=== PATIENT | female | born 1960 | race Caucasian/White ===

== ENCOUNTER 2022-04-25 06:39 | Day surgery (SDC) | payer OTHER ==
[2022-04-20 08:15] VITALS: BMI 40.2
[2022-04-25 08:23] VITALS: BP 135/81; TEMP 97.9
[2022-04-25] MEDS ORDERED: Iopamidol-M 200 41% 20 ML VIAL ONE (14:18)
== END 2022-04-25 09:40 | disposition home or self-care (01) ==
LOC: RAD 06:39
PROVIDERS: ATTEND Neurological Surgery
PROC: B01B1ZZ Fluoroscopy of Spinal Cord using Low Osmolar Contrast (ICD-10-PCS; principal; 2022-04-25)
DX: M51.16 Intervertebral disc disorders with radiculopathy, lumbar region (principal); M47.26 Other spondylosis with radiculopathy, lumbar region; M48.062 Spinal stenosis, lumbar region with neurogenic claudication; M47.817 Spondylosis without myelopathy or radiculopathy, lumbosacral region; M48.07 Spinal stenosis, lumbosacral region; I70.0 Atherosclerosis of aorta; I10 Essential (primary) hypertension; E78.5 Hyperlipidemia, unspecified; K21.9 Gastro-esophageal reflux disease without esophagitis; G89.29 Other chronic pain; M54.9 Dorsalgia, unspecified; G47.30 Sleep apnea, unspecified; Z86.711 Personal history of pulmonary embolism; Z79.01 Long term (current) use of anticoagulants; Z79.899 Other long term (current) drug therapy; Z95.0 Presence of cardiac pacemaker; Z98.1 Arthrodesis status
CPT/HCPCS: 62304; 72132; Q9966

== ENCOUNTER 2022-06-06 11:17 | Outpatient (CLI) | payer OTHER ==
[2022-06-06 12:44] LABS: Hemoglobin 12.7 g/dL (12.0-15.5); Mean Corpuscular HGB CONC 32.7 g/dL (32.0-36.0); Mean Corpuscular Hemoglobin 31.8 pg (27.0-33.0); Platelet Count 206 10x3/uL (150-450); RBC Distribution Width 15.3 % (11.5-14.5); White Blood Cell (WBC) Count 5.6 10x3/uL (3.5-10.5)
[2022-06-06 13:20] LABS: Anion Gap 14 mmol/L (10-20); BUN (Urea Nitrogen) 6 mg/dL (9.8-20.1); Calc. Creatinine Clearance 0 mL/min (70-130); Calcium 8.8 mg/dL (7.8-10.44); Carbon Dioxide 24 mmol/L (23-31); Chloride 106 mmol/L (98-107); Estimated GFR 86; Glucose 72 mg/dL (80-115); Potassium 3.5 mmol/L (3.5-5.1); Sodium 140 mmol/L (136-145)
== END 2022-06-06 11:18 | disposition home or self-care (01) ==
LOC: LABBT 11:17
PROVIDERS: ATTEND Neurological Surgery
DX: Z01.818 Encounter for other preprocedural examination (principal); M43.16 Spondylolisthesis, lumbar region
CPT/HCPCS: 80048; 85027

== ENCOUNTER 2022-06-06 12:15 | Inpatient (IN) | payer OTHER ==
[2022-06-15 13:41] VITALS: BMI 38.7
[2022-06-18] MEDS ORDERED: Scopolamine 1.5 mg/72 hour Patch ONE (09:22)
[2022-06-18 10:05] LABS: SARS-CoV-2 NAA Rapid Test Not Detected (NotDetected)
[2022-06-18] MEDS ORDERED: fentaNYL PF 100 MCG/2 ML SYRINGE ONE (12:13)
[2022-06-18] MEDS ORDERED: Midazolam HCl 2 mg/2 ml Vial ONE (12:13)
[2022-06-18] MEDS ORDERED: Ketamine 50 MG/ML (10ML VIAL) ONE (12:13)
[2022-06-18] MEDS ORDERED: Sodium Chloride 0.9% 100 ML ONE (12:27)
[2022-06-18] MEDS ORDERED: CEFAZOLIN 2 GM VIAL ONE (12:27)
[2022-06-18] MEDS ORDERED: Dexamethasone 20 MG/5 ML VIAL ONE (12:36)
[2022-06-18] MEDS ORDERED: PHENYLEPHRINE-NS 100 MCG/ML 10 ML SYRINGE ONE (12:36)
[2022-06-18] MEDS ORDERED: PROPOFOL 200 MG/20 ML VIAL ONE (12:36)
[2022-06-18] MEDS ORDERED: Rocuronium Bromide 10 MG/ML (10ML VIAL) ONE (12:36)
[2022-06-18] MEDS ORDERED: Ondansetron PF 4 MG/2 ML Vial ONE (12:36)
[2022-06-18] MEDS ORDERED: ePHEDrine 50 MG/ML VIAL ONE (12:36)
[2022-06-18] MEDS ORDERED: Metoclopramide HCl 10 MG/2 ML VIAL ONE (12:36)
[2022-06-18] MEDS ORDERED: diphenhydrAMINE 50 MG/ML VIAL ONE (12:36)
[2022-06-18] MEDS ORDERED: Meperidine HCl/PF 25 MG/ML VIAL SLOW IVP PRN (13:57)
[2022-06-18] MEDS ORDERED: HYDROmorphone 2 MG/ML VIAL SLOW IVP PRN (13:57)
[2022-06-18] MEDS ORDERED: Promethazine HCl 25 MG/ML VIAL IM PRN (13:57)
[2022-06-18] MEDS ORDERED: Promethazine HCl 25 MG/ML VIAL IVPB PRN (13:57)
[2022-06-18] MEDS ORDERED: Ondansetron HCl/PF 4 MG/2 ML Vial IVP PRN (13:57)
[2022-06-18] MEDS ORDERED: Milk Of Magnesia 30 ML UDCUP PO PRN (14:15)
[2022-06-18] MEDS ORDERED: traMADol HCl 50 MG TAB PO PRN (14:15)
[2022-06-18] MEDS ORDERED: Promethazine 25 MG TAB PO PRN (14:15)
[2022-06-18] MEDS ORDERED: Ondansetron PF 4 MG/2 ML Vial IVP PRN (14:15)
[2022-06-18] MEDS ORDERED: HYDROcodone/Acetaminophen 10/325 mg Tablet PO PRN (14:15)
[2022-06-18] MEDS ORDERED: Cyclobenzaprine 10 MG TAB PO PRN (14:15)
[2022-06-18] MEDS ORDERED: Mag-Al 1200 mg/1200 mg/30 ML UDCUP PO PRN (14:15)
[2022-06-18] MEDS ORDERED: Morphine 2 MG/ML VIAL SLOW IVP PRN (14:15)
[2022-06-18] MEDS ORDERED: diphenhydrAMINE 25 MG CAP PO PRN (14:15)
[2022-06-18] MEDS ORDERED: FENTANYL 50 MCG/ML 1 ML VIAL ONE ×2 (14:35→15:19)
[2022-06-18] MEDS: Sodium Chloride 0.9% 1,000 ML IV SCH (16:41)
[2022-06-18] MEDS: Pregabalin 50 MG CAP PO SCH ×2 (16:41→21:37)
[2022-06-18] MEDS: HYDROcodone/Acetaminophen 10/325 mg Tablet PO PRN ×2 (17:29→21:43)
[2022-06-18] MEDS: CEFAZOLIN 2 GM in Sodium Chloride 0.9% 100 ML IVPB SCH (21:36)
[2022-06-19] MEDS: Sodium Chloride 0.9% 1,000 ML IV SCH ×2 (04:36→16:32)
[2022-06-19] MEDS: CEFAZOLIN 2 GM in Sodium Chloride 0.9% 100 ML IVPB SCH (04:37)
[2022-06-19] MEDS: HYDROcodone/Acetaminophen 10/325 mg Tablet PO PRN ×4 (05:26→22:50)
[2022-06-19] MEDS: Lisinopril 20 MG TAB PO SCH (08:08)
[2022-06-19] MEDS: Pregabalin 50 MG CAP PO SCH ×3 (08:09→20:23)
[2022-06-19] MEDS ORDERED: FLU VACC QS2022-23(6MOS UP)/PF 60 MCG/0.5 ML SYRINGE IM ONE (09:00)
[2022-06-20] MEDS: Sodium Chloride 0.9% 1,000 ML IV SCH ×2 (06:07→20:40)
[2022-06-20] MEDS: HYDROcodone/Acetaminophen 10/325 mg Tablet PO PRN ×3 (07:51→22:46)
[2022-06-20] MEDS: Pregabalin 50 MG CAP PO SCH ×3 (08:53→20:41)
[2022-06-20] MEDS: Lisinopril 20 MG TAB PO SCH (08:54)
[2022-06-20] MEDS: CEFAZOLIN 2 GM in Sodium Chloride 0.9% 100 ML IVPB SCH ×2 (15:18→22:47)
[2022-06-21] MEDS: CEFAZOLIN 2 GM in Sodium Chloride 0.9% 100 ML IVPB SCH (05:28)
[2022-06-21] MEDS: HYDROcodone/Acetaminophen 10/325 mg Tablet PO PRN ×2 (06:55→11:35)
[2022-06-21 08:35] VITALS: TEMP 98.2
[2022-06-21] MEDS: Sodium Chloride 0.9% 1,000 ML IV SCH (09:38)
[2022-06-21] MEDS: Lisinopril 20 MG TAB PO SCH (09:41)
[2022-06-21] MEDS: Pregabalin 50 MG CAP PO SCH (09:41)
[2022-06-21 11:39] VITALS: BP 113/62
== END 2022-06-21 14:00 | disposition home or self-care (01) | DRG 460 ==
LOC: SURG A 06-18 07:05 → SURG B 06-18 15:48
PROVIDERS: ADMIT Neurological Surgery; ATTEND Neurological Surgery
PROC: 0SG1071 Fusion of 2 or more Lumbar Vertebral Joints with Autologous Tissue Substitute, Posterior Approach, Posterior Column, Open Approach (ICD-10-PCS; principal; 2022-06-18)
PROC: 01NB0ZZ Release Lumbar Nerve, Open Approach (ICD-10-PCS; 2022-06-18)
PROC: 0SP004Z Removal of Internal Fixation Device from Lumbar Vertebral Joint, Open Approach (ICD-10-PCS; 2022-06-18)
DX: M48.062 Spinal stenosis, lumbar region with neurogenic claudication (principal); M43.16 Spondylolisthesis, lumbar region; Z20.822 Contact with and (suspected) exposure to COVID-19; E78.5 Hyperlipidemia, unspecified; I10 Essential (primary) hypertension; K21.9 Gastro-esophageal reflux disease without esophagitis; G47.30 Sleep apnea, unspecified; Z28.21 Immunization not carried out because of patient refusal; Z98.0 Intestinal bypass and anastomosis status; Z98.890 Other specified postprocedural states; Z90.49 Acquired absence of other specified parts of digestive tract; Z90.710 Acquired absence of both cervix and uterus; Z79.899 Other long term (current) drug therapy; Z86.711 Personal history of pulmonary embolism
CPT/HCPCS: C1713; C1768; C1776; J1100; J1200; J2250; J2405; J2704; J2765; J3010; J3370; J3490; J7050; U0002